=== PATIENT | male | born 1955 | race American Indian/Alaskan Native ===

== ENCOUNTER 2018-01-31 12:35 | Day surgery (SDC) | payer OTHER ==
[2018-01-31] MEDS ORDERED: NACL 0.9% 1000 ML 1,000 ML IV SCH (14:00)
--- NOTE | 2018-01-31 15:43 | Anesthesia Consultation ---
Anesthesia Consult and Med Hx Date of service: 01/31/18 - Airway Anesthetic Teeth Evaluation: Poor (multiple missing teeth in the bottom), Edentulous (on the top) ROM Head & Neck: Adequate Mental/Hyoid Distance: Adequate Mallampati Class: Class II Intubation Access Assessment: Probably Good - Pre-Operative Health Status ASA Pre-Surgery Classification: ASA2 Proposed Anesthetic Plan: MAC - Gastrointestinal Hx Gastroesophageal Reflux Disease: Yes (dysphagea)
--- NOTE | 2018-01-31 15:44 | Anesthesia Day of Surgery ---
Anesthesia Day of Surgery - Day of Surgery Patient Examined: Yes Patient H&P Reviewed: Yes Patient is NPO: Yes
[2018-01-31] MEDS ORDERED: DIPRIVAN 10 MG/ML IV ONE ×2 (16:20)
[2018-01-31] MEDS ORDERED: WATER FOR IRRIG STERILE IR ONE (16:27)
[2018-01-31 17:33] VITALS: BP 151/93
--- NOTE | 2018-01-31 17:36 | Operative Report ---
Operative Report Operative Report: Date of procedure: 01/31/2018 Procedure: Esophagogastroduodenoscopy with foreign body removal, also multiple gastric antral biopsies. Attending physician: Poncho Bales MD Digester: Poncho Bales MD Indication: Patient is a 62-year-old male who presents history of dysphagia to solids. Patient also has a history of epigastric pain and indigestion. An upper endoscopy is done to evaluate patient so that treatment may be directed based on the findings. Consent: Informed consent was obtained after advising the patient and family regarding nature of this procedure, its indications, potential benefits as well as possible complications including but not limited to bleeding perforation and adverse reaction to medication, infection as well as other cardiopulmonary complications. An informed written and verbal consent was then obtained after due opportunity was provided for questions and answers. Monitoring: Patient was monitored continuously with pulse oximetry and electrocardiographic recordings as well as blood pressure recordings. Vital signs remained stable throughout this procedure with no untoward events. Preoperative assessment: Patient was assessed immediately prior to this procedure for capacity to tolerate monitored anesthesia care and moderate sedation as well as general anesthesia. Patient's ASA classification is [2], Mallampati class is [2], Hyomental distance is [3]. Instrument: [employer] video endoscope. Moore net. Medications: Propofol, given intravenously in divided doses. For details please refer to anesthesia records. Description of procedure: Patient was placed in the left lateral decubitus position after achieving sedation, the endoscope was introduced into the esophagus under direct vision. It was then advanced beyond the esophagus into the stomach and then beyond the stomach into the duodenum and to the second portion of the duodenum. It was subsequently withdrawn with careful inspection of all mucosal surfaces with the following findings. Findings: Patient had proximally dilated esophagus was substantial retained liquid and also solid food content. There also was some foul-smelling content in the proximal esophagus. This was vigorously suctioned as much as possible. Following the suctioning, there was substantial retained solid food content. This was sequentially removed with multiple passes using a Moore net. After removing all the solid food matter in the esophagus, the endoscope was advanced. There was esophagitis in the mid to the distal esophagus. The more proximal aspect of the esophagus with the changes is more indicative of stasis esophagitis more distally, some of the changes appeared to be due to erosive esophagitis. There was no true stricture however the endoscope was gently passed into the stomach. Retroflex examination was carried out at the gastric cardia. There was a 1 cm x 0.5 cm clean-based ulcer seen in the gastric cardia. There was some retching trauma seen in the gastric cardia. There was erythema seen in the gastric body and the antrum. Biopsies of the antrum were obtained for histopathology. The duodenum was normal to second portion. After the examination to the second portion, the plan was to bring the endoscope back into the stomach and place a guidewire and place a dilator through the distal esophagus. On withdrawing the endoscope from the duodenum into the stomach, patient was noted to have some blood at the gastroesophageal junction upon further inspection, patient was noted to have linear tears in the distal esophagus. Following this finding, the endoscope was safely removed from the stomach. Dilation was not performed because of the linear tears. Impression: Proximal esophageal dilation with distal tapering of the esophagus. Retained esophageal contents status post suctioning Retained solid contents in the esophagus status post foreign body removal Friable esophagus with erosive esophagitis and also stasis esophagitis. Linear tear in the distal esophagus. Gastric cardia ulcer. Gastric antral and gastric body erythema. Status post biopsies of the gastric antrum. Plan: Continue treatment with Carafate suspension. Observe patient clinically for any improvement. The endoscopic changes may be due to acatalasia although patient will require manometric studies to further clarify this. A repeat endoscopy should be considered also in the near future with esophageal dilation as this was not done during this examination as patient had tear in the distal esophagus.
--- NOTE | 2018-01-31 17:37 | Discharge Summary ---
Short Stay Discharge Plan Activity: advance as tolerated Weight Bearing Status: Weight Bear as Tolerated Diet: low protein Follow up with: VAUGHN POWELL DO [Primary Care Provider] - 7 Days
== END 2018-01-31 12:36 | disposition home or self-care (01) ==
LOC: GIO 12:35
PROVIDERS: ATTEND Internal Medicine Gastroenterology
DX: S27.813A Laceration of esophagus (thoracic part), initial encounter (principal); T18.128A Food in esophagus causing other injury, initial encounter; K21.0 Gastro-esophageal reflux disease with esophagitis; K25.9 Gastric ulcer, unspecified as acute or chronic, without hemorrhage or perforation; K22.8 Other specified diseases of esophagus; K29.50 Unspecified chronic gastritis without bleeding; Z88.0 Allergy status to penicillin
CPT/HCPCS: 43239; 43247; 88305; 88342; J2704

== ENCOUNTER 2018-02-23 09:01 | Outpatient (CLI) | payer OTHER ==
--- NOTE | 2018-02-23 13:38 | Anesthesia Consultation ---
Anesthesia Consult and Med Hx Date of service: 02/23/18 - Airway Anesthetic Teeth Evaluation: Dentures (upper), Partials (lower) ROM Head & Neck: Adequate Mental/Hyoid Distance: Adequate Mallampati Class: Class II Intubation Access Assessment: Probably Good - Pre-Operative Health Status ASA Pre-Surgery Classification: ASA2 Proposed Anesthetic Plan: MAC - Cardiovascular System Hx Cardia Arrhythmia: Yes (had negative echo stress test this morning) - Gastrointestinal Hx Gastroesophageal Reflux Disease: Yes (dysphagea) - Additional Comments Anesthesia Medical History Comments: hemorhoids
--- NOTE | 2018-02-23 13:39 | Anesthesia Day of Surgery ---
Anesthesia Day of Surgery - Day of Surgery Patient Examined: Yes Patient H&P Reviewed: Yes Patient is NPO: Yes
[2018-02-23] MEDS ORDERED: WATER FOR IRRIG STERILE IR ONE (14:08)
[2018-02-23] MEDS ORDERED: DIPRIVAN 10 MG/ML IV ONE ×2 (14:09)
--- NOTE | 2018-02-23 14:37 | Post Anesthesia Evaluation ---
- Post Anesthesia Evaluation Patient Participated: Yes Airway Patent: Yes Stable Respiratory Function: Yes Nausea/Vomiting: No Temp > 96.8F: Yes Pain Manageable: Yes Adequeate Hydration: Yes Anesthesia Complications: No
--- NOTE | 2018-02-23 14:42 | Operative Report ---
Operative Report Operative Report: Date of procedure: 02/23/2018 Procedure: Colonoscopy with multiple hot biopsy polypectomies. Attending physician: Poncho Bales MD [employer] Sales Attendant: Poncho Bales MD Indication: Patient is a 62-year-old male who presents for screening colonoscopy. A colonoscopy service to evaluate patient for colorectal cancer screening. Consent: Informed consent was obtained after advising the patient and family regarding nature of this procedure, its indications, potential benefits as well as possible complications including but not limited to bleeding perforation and adverse reaction to medication, infection as well as other cardiopulmonary complications. An informed written and verbal consent was then obtained after due opportunity was provided for questions and answers. Monitoring: Patient was monitored continuously with pulse oximetry and electrocardiographic recordings as well as blood pressure recordings. Vital signs remained stable throughout this procedure with no untoward events. Preoperative assessment: Patient was assessed immediately prior to this procedure for capacity to tolerate monitored anesthesia care and moderate sedation as well as general anesthesia. Patient's ASA classification is 2, Mallampati class is 2, Hyomental distance is 3. Instrument: [employer] video colonoscope Medications: Propofol given intravenously in divided doses. For details please refer to anesthesia records. Description of procedure: Patient was placed in the left lateral decubitus position after achieving sedation, a digital rectal examination was performed following which the colonoscope was introduced into the anal verge and advanced to the cecum which was identified by the cecal valve, the appendiceal orifice, as well as by the cecal strap and direct transillumination. The colonoscope was subsequently withdrawn with careful inspection of all mucosal surfaces. Patient tolerated this procedure well and was subsequently taken to the recovery room. The following findings were noted. Findings: There were a few scattered diverticula in the sigmoid colon and descending colon, otherwise. There were 5 polyps in the sigmoid colon. 3 of the polyps measured 6-8 mm were sessile these were removed by hot biopsy polypectomy. 2 additional polyps measured 3-4 mm and again were removed hot biopsy polypectomy. The rest of the colon was normal. On the retroflex view at the anal verge, patient had prominent internal hemorrhoids. Impression: Multiple sigmoid colon polyps status post hot biopsy polypectomy. Mild diverticulosis. Internal hemorrhoids. Plan: Follow pathology report. High-fiber diet. Repeat colonoscopy in 5 years. Patient will likely benefit from hemorrhoidal band ligation if he becomes symptomatic given that he has significant internal hemorrhoids.
[2018-02-23 15:23] VITALS: BP 127/85
[2018-02-23] MEDS ORDERED: NACL 0.9% 1000 ML 1,000 ML IV SCH (16:00)
== END 2018-02-23 09:02 | disposition home or self-care (01) ==
LOC: ECHO 09:01
PROVIDERS: ATTEND Internal Medicine Gastroenterology
DX: R94.31 Abnormal electrocardiogram [ECG] [EKG] (principal)
CPT/HCPCS: 45384; 88305; 88342; 93017; 93320; 93325; 93350; J2704

== ENCOUNTER 2018-05-10 10:35 | Day surgery (SDC) | payer OTHER ==
--- NOTE | 2018-05-10 11:53 | Anesthesia Consultation ---
Anesthesia Consult and Med Hx Date of service: 05/10/18 - Airway Anesthetic Teeth Evaluation: Poor (endetolous upper, missing multiple lower) ROM Head & Neck: Adequate Mental/Hyoid Distance: Adequate Mallampati Class: Class III Intubation Access Assessment: Possibly Difficult - Pulmonary Exam CTA: Yes - Cardiac Exam Cardiac Exam: RRR - Pre-Operative Health Status ASA Pre-Surgery Classification: ASA2 Proposed Anesthetic Plan: MAC - Cardiovascular System Hx Cardia Arrhythmia: Yes (bradycardia) - Central Nervous System Hx Back Pain: Yes - Gastrointestinal Hx Gastroesophageal Reflux Disease: Yes (dysphagia)
--- NOTE | 2018-05-10 11:54 | Anesthesia Day of Surgery ---
Anesthesia Day of Surgery - Day of Surgery Patient Examined: Yes Patient H&P Reviewed: Yes Patient is NPO: Yes
[2018-05-10] MEDS ORDERED: DIPRIVAN 10 MG/ML IV ONE (12:59)
[2018-05-10] MEDS ORDERED: NACL 0.9% 1000 ML 1,000 ML IV SCH (13:00)
[2018-05-10] MEDS ORDERED: WATER FOR IRRIG STERILE IR ONE (13:36)
--- NOTE | 2018-05-10 13:49 | Discharge Summary ---
Short Stay Discharge Plan Activity: advance as tolerated Weight Bearing Status: Weight Bear as Tolerated Diet: regular Additional Instructions: Post Sedation D/C Instructions When you return home you may resume your regular diet unless otherwise directed. -Go directly home from the hospital and rest quietly. You may resume normal activities tomorrow. -Do NOT drive, return to work, operate any machinery or make any important personal or business decisions today. -Do NOT drink any alcohol or take nerve or sleeping drugs. They add to the effects of the medicine still present in your body. Follow up with Dr. Bales in 2 weeks to obtain pathology results and treatment plan. Follow up with: VAUGHN POWELL [Primary Care Provider] - 7 Days
--- NOTE | 2018-05-10 13:49 | Operative Report ---
Operative Report Operative Report: Date: 05/10/2018 Date of procedure: 05/10/2018 Operative Report: :Esophagogastroduodenoscopy with multiple mucosal biopsies, Wire guided savary dilation of the esophagus. Attending physician: Poncho Bales MD Blender: Poncho Bales MD Indication: Patient is a 63-year-old male who presented with a history of dysphagia and past history of gastric ulcer. An upper endoscopy is done to assess patient so that treatment may be directed based on the findings. Consent: Informed consent was obtained after advising the patient and family regarding nature of this procedure, its indications, potential benefits as well as possible complications including but not limited to bleeding perforation and adverse reaction to medication, infection as well as other cardiopulmonary complications. An informed written and verbal consent was then obtained after due opportunity was provided for questions and answers. Monitoring: Patient was monitored continuously with pulse oximetry and electrocardiographic recordings as well as blood pressure recordings. Vital signs remained stable throughout this procedure with no untoward events. Preoperative assessment: Patient was assessed immediately prior to this procedure for capacity to tolerate monitored anesthesia care and moderate sedation as well as general anesthesia. Patient's ASA classification is 2, Mallampati class is 2, Hyomental distance is 3. Instrument: [employer] video endoscope Medications: Propofol given intravenously in divided doses. For details please refer to anesthesia records. Description of procedure: Patient was placed in the left lateral decubitus position after achieving sedation, the endoscope was introduced into the esophagus under direct vision. It was then advanced beyond the esophagus into the stomach and then beyond the stomach into the duodenum and to the second portion of the duodenum. It was subsequently withdrawn with careful inspection of all mucosal surfaces with the following findings. Findings: There was dilation of the midesophagus with distal tapering. There was retained contents in the esophagus. Endoscopically this raised concern for possible achalasia. A guidewire was passed through the endoscope and Savary dilation was performed serially from 48 Scottish to 51 Scottish. Patient tolerated procedure well. On entry into the stomach, there was erythema in the gastric antrum and body. There were erosions in the gastric antrum. Biopsies of the antrum were obtained for histopathology. The duodenum was normal to the second portion. Impression: Dilation of the midesophagus with distal tapering, status post wire guided dilation. Mucosal changes suggestive of gastritis. Plan: Follow pathology report, direct additional treatment based on the pathology report. Repeat dilation in the next few weeks and follow patient clinically.
[2018-05-10 14:03] VITALS: BP 151/91
== END 2018-05-10 10:36 | disposition home or self-care (01) ==
LOC: GIO 10:35
PROVIDERS: ATTEND Internal Medicine Gastroenterology
DX: K29.50 Unspecified chronic gastritis without bleeding (principal); K22.10 Ulcer of esophagus without bleeding; K21.0 Gastro-esophageal reflux disease with esophagitis; Z88.0 Allergy status to penicillin; Z98.890 Other specified postprocedural states
CPT/HCPCS: 88305; 88342; J2704; J7030